=== PATIENT | male | born 1965 | race African-American/Black ===

== ENCOUNTER 2023-03-09 08:04 | Outpatient (CLI) | payer BC | END 2023-03-09 08:17 | disposition home or self-care (01) | LOC: LAB 08:04 | PROVIDERS: ATTEND Obstetrics & Gynecology | DX: Z20.828 Contact with and (suspected) exposure to other viral communicable diseases (principal); Z20.818 Contact with and (suspected) exposure to other bacterial communicable diseases ==

== ENCOUNTER 2023-07-02 10:14 | Emergency (ER) | payer BC ==
[~2023-07-02] VITALS: Ht 182.9 cm; Wt 78.5 kg
[2023-07-02] MEDS ORDERED: NIACOR500 MG (10:22)
[2023-07-02] MEDS ORDERED: ATORVASTATIN CA10 MG PO (10:23)
[2023-07-02] MEDS ORDERED: LEVOTHYROXINE (10:23)
[2023-07-02] MEDS ORDERED: CHILDREN'S ASPI81 MG (10:24)
[2023-07-02] MEDS ORDERED: EFFIENT5 MG PO (10:24)
[2023-07-02] MEDS ORDERED: BIDIL TABLET1 EACH (10:24)
== END 2023-07-02 15:43 | disposition home or self-care (01) ==
LOC: ER 10:14
DX: R10.33 Periumbilical pain (principal); N40.0 Benign prostatic hyperplasia without lower urinary tract symptoms; Z95.1 Presence of aortocoronary bypass graft; I10 Essential (primary) hypertension; Z88.8 Allergy status to other drugs, medicaments and biological substances

== ENCOUNTER 2024-02-03 10:30 | Outpatient (CLI) | payer OTHER ==
[~2024-02-03 10:30] MED LIST: ATORVASTATIN CA10 MG PO; BIDIL TABLET1 EACH; CHILDREN'S ASPI81 MG; EFFIENT5 MG PO; LEVOTHYROXINE; NIACOR500 MG
== END 2024-02-03 10:40 | disposition home or self-care (01) ==
LOC: RAD 10:30
DX: N20.0 Calculus of kidney (principal); E03.8 Other specified hypothyroidism; D34 Benign neoplasm of thyroid gland